=== PATIENT | female | born 1960 | race Caucasian/White ===

== ENCOUNTER → 2019-07-19 | Outpatient (CLI) | payer OTHER ==
--- NOTE | 2019-07-19 10:18 | Diagnostic Imaging Report ---
CLINICAL INDICATION: Patient with chronic back pain on left side that radiates down anterior aspect the left leg to knee. Shots are not making pain better. EXAM: X-ray of the lumbar spine, 3 views. COMPARISON: None. FINDINGS: There is chronic-appearing bilateral L5 spondylolysis with no significant listhesis. Otherwise there is no acute lumbar spine fracture or dislocation. There are small degenerative spurs involving the lumbar spine. There is lower lumbar spine facet arthropathy. Sacroiliac joints are unremarkable. There is amorphous calcification of the pelvis noted. IMPRESSION: 1. There is chronic-appearing bilateral L5 spondylolysis with no significant listhesis. 2: Lumbar spine degenerative disease. Dictated by: Dictated on workstation # [id number]
== END ==
LOC: RAD 08:55
PROVIDERS: ATTEND Nurse Practitioner Family
DX: M47.816 Spondylosis without myelopathy or radiculopathy, lumbar region (principal); M51.36 Other intervertebral disc degeneration, lumbar region
CPT/HCPCS: 72100

== ENCOUNTER → 2019-08-15 | Outpatient (CLI) | payer OTHER ==
--- NOTE | 2019-08-15 09:17 | Diagnostic Imaging Report ---
PROCEDURE: MRI lumbar spine. TECHNIQUE: Multiplanar, multisequence MRI of the lumbar spine was performed without contrast. INDICATION: Low back pain. COMPARISON: Lumbar spine radiographs of 07/09/2019. FINDINGS: There are five lumbar-type vertebral bodies. Normal alignment. Vertebral body heights are preserved. Normal bone marrow signal. No abnormal signal in the conus which terminates at L1. Normal morphology of the cauda equina. The visualized paravertebral soft tissues are unremarkable. L1-L2: Normal. L2-L3: Normal. L3-L4: Small annular disc bulge, ligamentous hypertrophy, and facet arthropathy result in mild bilateral lateral recess and spinal canal narrowing. Mild bilateral neuroforaminal narrowing. L4-L5: Facet arthropathy and ligamentous hypertrophy result in mild bilateral lateral recess narrowing. Mild bilateral neuroforaminal narrowing. No spinal canal narrowing. L5-S1: Normal. IMPRESSION: Mild spondylotic changes result in no high-grade neural impingement. Mild neuroforaminal and lateral recess narrowing at L3-L4 and L4-L5. No acute findings. Dictated by: Dictated on workstation # [id number]
== END ==
LOC: RAD 07:34
PROVIDERS: ATTEND Physician Assistant
DX: M47.816 Spondylosis without myelopathy or radiculopathy, lumbar region (principal)
CPT/HCPCS: 72148

== ENCOUNTER → 2020-03-04 | Outpatient (CLI) | payer OTHER | LOC: LABNPT 05:48 | PROVIDERS: ATTEND Family Medicine | DX: J02.9 Acute pharyngitis, unspecified (principal) ==

== ENCOUNTER → 2020-03-26 | Outpatient (CLI) | payer OTHER | LOC: CARD 08:30 | PROVIDERS: ATTEND Internal Medicine Cardiovascular Disease | DX: I10 Essential (primary) hypertension (principal); I73.9 Peripheral vascular disease, unspecified; R60.9 Edema, unspecified | CPT/HCPCS: 93306 ==

== ENCOUNTER → 2021-09-07 | Outpatient (CLI) | payer OTHER ==
--- NOTE | 2021-09-07 09:11 | Diagnostic Imaging Report ---
Indication: Fall, resulted in tailbone pain. Findings: Frontal and lateral sacrococcygeal radiographs showed normal curvature, no focal buckling, no suspicious cortical lucency and no abnormal angulation. There is no symphyseal or SI joint diastases. Impression: No sacrococcygeal fracture deformity identified. Dictated by: Dictated on workstation # [id number]
== END ==
LOC: RAD 08:05
PROVIDERS: ATTEND Nurse Practitioner Family
DX: M53.3 Sacrococcygeal disorders, not elsewhere classified (principal); W19.XXXA Unspecified fall, initial encounter
CPT/HCPCS: 72220

== ENCOUNTER 2022-12-19 13:50 | Outpatient (RCR) | payer OTHER | END 2022-12-30 | disposition home or self-care (01) | PROVIDERS: ATTEND Nurse Practitioner | DX: M54.16 Radiculopathy, lumbar region (principal); I10 Essential (primary) hypertension ==

== ENCOUNTER 2023-01-19 10:45 | Outpatient (RCR) | payer OTHER | END 2023-01-30 | disposition home or self-care (01) | PROVIDERS: ATTEND Nurse Practitioner | DX: M54.16 Radiculopathy, lumbar region (principal); I10 Essential (primary) hypertension ==

== ENCOUNTER 2023-02-28 15:39 | Outpatient (RCR) | payer OTHER | END 2023-03-02 | disposition home or self-care (01) | PROVIDERS: ATTEND Nurse Practitioner | DX: M54.16 Radiculopathy, lumbar region (principal) ==

== ENCOUNTER 2023-04-13 15:36 | Outpatient (RCR) | payer OTHER | END 2023-05-02 | disposition home or self-care (01) | PROVIDERS: ATTEND Nurse Practitioner | DX: M54.16 Radiculopathy, lumbar region (principal); M25.552 Pain in left hip ==

== ENCOUNTER → 2023-04-17 | Outpatient (CLI) | payer OTHER ==
--- NOTE | 2023-04-18 08:57 | Diagnostic Imaging Report ---
INDICATION: Routine screening. COMPARISON: 06/16/2021 and 02/12/2020. TECHNIQUE: 2D and 3D bilateral screening mammography was performed with CAD. FINDINGS: Scattered fibroglandular densities are identified bilaterally. The parenchymal pattern is stable. No dominant mass or malignant-appearing microcalcifications are seen. The axillae are unremarkable. IMPRESSION: No mammographic features suspicious for malignancy are identified. ACR BI-RADS Category 1: Negative. Result letter will be mailed to the patient. Note: At least 10% of breast cancer is not imaged by mammography. Dictated by: Dictated on workstation # [id number]
== END ==
LOC: RAD 15:15
PROVIDERS: ATTEND Physician Assistant
DX: Z12.31 Encounter for screening mammogram for malignant neoplasm of breast (principal)
CPT/HCPCS: 77063; 77067